=== PATIENT | male | born 1995 | race Caucasian/White ===

== ENCOUNTER 2017-04-30 05:08 | Emergency (ER) | payer MEDICAID, OTHER ==
[~2017-04-30] VITALS: Ht 172.7 cm; Wt 72.0 kg
[~2017-04-30 05:08] MED LIST: HYDR28CR14 TOP; NEOM10SO7 OT; NO HOME MEDS
[2017-04-30 05:21] VITALS: BP 130/62
== END 2017-04-30 06:13 | disposition left against medical advice (07) ==
LOC: ER 05:09
DX: S09.90XA Unspecified injury of head, initial encounter (principal); Z53.21 Procedure and treatment not carried out due to patient leaving prior to being seen by health care provider; X58.XXXA Exposure to other specified factors, initial encounter; Y93.89 Activity, other specified; Y92.89 Other specified places as the place of occurrence of the external cause; Y99.8 Other external cause status

== ENCOUNTER 2017-09-26 21:02 | Emergency (ER) | payer OTHER ==
[~2017-09-26] VITALS: Ht 170.2 cm; Wt 59.1 kg
[~2017-09-26 21:02] MED LIST changes: +CEPH-571 PO
[2017-09-26 21:12] VITALS: BP 124/82
== END 2017-09-26 22:42 | disposition left against medical advice (07) ==
LOC: ER 21:03
DX: R50.9 Fever, unspecified (principal); Z53.21 Procedure and treatment not carried out due to patient leaving prior to being seen by health care provider